=== PATIENT | male | born 1960 | race Two or more races ===

== ENCOUNTER → 2021-12-30 | Outpatient (CLI) | payer MEDICARE ==
[2021-12-30 12:09] LABS: Potassium 4.8 mmol/L (3.5-5.1)
[2021-12-30 12:19] LABS: BUN/Creatinine Ratio 14.8; Calcium 7.6 mg/dL (8.5-10.1)
== END | disposition home or self-care (01) ==
LOC: LAB 09:30
PROVIDERS: ATTEND Internal Medicine Nephrology
DX: N18.4 Chronic kidney disease, stage 4 (severe) (principal)
CPT/HCPCS: 36415; 80048

== ENCOUNTER → 2023-10-24 | Outpatient (CLI) | payer MEDICARE, MEDICAID ==
[2023-10-24 10:12] LABS: Basophils # (auto) 0 10 ^3/uL (0-0.2); Basophils % (auto) 0.5 % (0.0-2.0); Eosinophils # (auto) 0 10 ^3/uL (0-0.8); Eosinophils % (auto) 0.5 % (0.0-7.0); Hematocrit 29.9 % (41.0-53.0); Hemoglobin 9.6 g/dL (13.5-17.5); Lymphocytes # (auto) 0.7 10 ^3/uL (0.4-5.4); Lymphocytes % (auto) 7.8 % (10.0-50.0); Mean Corpuscular Hemoglobin 29.9 pg (28.0-32.0); Mean Corpuscular Hgb Conc. 32.1 g/dL (32.0-36.0); Mean Corpuscular Volume 93.2 fL (80.0-100.0); Monocytes # (auto) 0.9 10 ^3/uL (0-1.3); Monocytes % (auto) 10.1 % (0.0-12.0); Neutrophils # (auto) 7.6 10 ^3/uL (1.6-8.6); Neutrophils % (auto) 81.1 % (37.0-80.0); Red Blood Cells 3.21 10^6/uL (4.5-5.90); Red Cell Distribution Width 14.7 % (11.8-14.3); White Blood Cell 9.3 10^3/uL (4.4-10.8)
[2023-10-24 11:25] LABS: Alanine Aminotransferase 17 U/L (7-40); Albumin 3.4 g/dL (3.2-4.8); Alkaline Phosphatase 183 U/L (46-116); Anion Gap 10 (5-15); Aspartate Aminotransferase 15 U/L (13-40); BUN/Creatinine Ratio 7.7 (10.0-20.0); Blood Urea Nitrogen 37 mg/dL (9-23); Calcium 7.8 mg/dL (8.5-10.1); Carbon Dioxide 25 mmol/L (20-30); Chloride 98 mmol/L (98-107); Glucose 155 mg/dL (74-106); Potassium 4.9 mmol/L (3.5-5.1); Sodium 133 mmol/L (136-145); Total Protein 7.3 g/dL (5.7-8.2)
== END | disposition home or self-care (01) ==
LOC: LAB 09:51
PROVIDERS: ATTEND Student in an Organized Health Care Education/Training Program
DX: I12.0 Hypertensive chronic kidney disease with stage 5 chronic kidney disease or end stage renal disease (principal); E11.22 Type 2 diabetes mellitus with diabetic chronic kidney disease; N18.6 End stage renal disease
CPT/HCPCS: 36415; 80053; 83036; 85025

== ENCOUNTER → 2024-04-04 | Outpatient (CLI) | payer MEDICARE, MEDICAID | END | disposition home or self-care (01) | LOC: LAB 10:23 | PROVIDERS: ATTEND Podiatrist | DX: E11.621 Type 2 diabetes mellitus with foot ulcer (principal) | CPT/HCPCS: 87075; 87077; 87186; 87205 ==

== ENCOUNTER 2024-08-14 03:40 | Inpatient (IN) | payer MEDICARE, MEDICAID ==
[~2024-08-14] VITALS: Ht 167.6 cm; Wt 68.6 kg
[2024-08-14] MEDS: ONDANSETRON ODT 4 MG TAB PO ONE (05:49)
[2024-08-14 06:08] LABS: Basophils # (auto) 0 10 ^3/uL (0-0.2); Basophils % (auto) 0.1 % (0.0-2.0); Eosinophils # (auto) 0.1 10 ^3/uL (0-0.8); Hematocrit 34.2 % (41.0-53.0); Hemoglobin 11.7 g/dL (13.5-17.5); Lymphocytes # (auto) 0.6 10 ^3/uL (0.4-5.4); Lymphocytes % (auto) 7.3 % (10.0-50.0); Mean Corpuscular Hemoglobin 31.8 pg (28.0-32.0); Mean Corpuscular Hgb Conc. 34.3 g/dL (32.0-36.0); Mean Corpuscular Volume 92.9 fL (80.0-100.0); Monocytes # (auto) 0.8 10 ^3/uL (0-1.3); Monocytes % (auto) 8.7 % (0.0-12.0); Neutrophils # (auto) 7.2 10 ^3/uL (1.6-8.6); Neutrophils % (auto) 82.9 % (37.0-80.0); Platelet Count (auto) 71 10^3/uL (140-450); Red Blood Cells 3.68 10^6/uL (4.5-5.90); Red Cell Distribution Width 14.7 % (11.8-14.3); White Blood Cell 8.7 10^3/uL (4.4-10.8)
[2024-08-14 06:09] LABS: INR 1.1 (0.9-1.15); Partial Thromboplastin Time 33.2 SEC (24.5-34.5); Prothrombin Time 11.6 sec (9.3-11.8)
[2024-08-14 06:13] LABS: Alkaline Phosphatase 101 U/L (46-116); Anion Gap 17 (5-15); Aspartate Aminotransferase < 8 U/L (13-40); BUN/Creatinine Ratio 5.4 (10.0-20.0); Bilirubin, Total 0.6 mg/dL (0.2-1.0); Blood Urea Nitrogen 60 mg/dL (9-23); Calcium 7.3 mg/dL (8.7-10.4); Carbon Dioxide 17 mmol/L (20-31); Chloride 94 mmol/L (98-107); Glucose 121 mg/dL (74-106); Potassium 3.2 mmol/L (3.5-5.1); Sodium 128 mmol/L (136-145)
[2024-08-14 06:14] LABS: Total Protein 7.9 g/dL (5.7-8.2)
[2024-08-14 06:27] LABS: Alanine Aminotransferase < 9 U/L (7-40)
[2024-08-14] MEDS: SODIUM CHLORIDE 0.9% 250 ML IV ONE (07:12)
[2024-08-14] MEDS: SODIUM CHLORIDE 0.9% 1,000 ML IV ONE (07:58)
[2024-08-14 08:25] LABS: Large Platelets FEW; Platelet Estimate Decrea
[2024-08-14] MEDS ORDERED: NITROGLYCERIN 0.4 MG SL TAB SL PRN (10:30)
[2024-08-14] MEDS ORDERED: DOCUSATE SOD 100 MG CAP PO PRN (10:30)
[2024-08-14] MEDS: SODIUM CHLORIDE 0.9% 1,000 ML IV SCH (12:12)
[2024-08-14] MEDS: PIPERACILLIN-TAZOB 2.25GM 50 ML IV ONE (12:13)
[2024-08-14 12:15] LABS: INR 1.08 (0.9-1.15); Prothrombin Time 11.4 sec (9.3-11.8)
[2024-08-14] MEDS ORDERED: ENOXAPARIN SOD 100 MG/1 ML SYRINGE SC ONE (12:15)
[2024-08-14] MEDS: CALCIUM CARB 500 MG CHEW TAB PO ONE (13:00)
[2024-08-14] MEDS: PANTOPRAZOLE 40 MG/10 ML VIAL INJ IV ONE (13:03)
[2024-08-14] MEDS: MORPHINE SULFATE INJ 2 MG/ml SYRG IV PRN (13:25)
[2024-08-14 16:04] VITALS: BP 153/60; PULSE 62; RESP 18; TEMP 97.5; O2SAT 98
[2024-08-14 16:06] VITALS: RESP 18
[2024-08-14 16:20] VITALS: BP 155/62; PULSE 65; RESP 15; TEMP 97.4; O2SAT 98
[2024-08-14] MEDS: ONDANSETRON HCL 4 MG/2 ML VIAL IV PRN (16:53)
[2024-08-14 17:52] VITALS: BP 155/62; PULSE 65; RESP 15; TEMP 97.4; O2SAT 98
[2024-08-14] MEDS: CALCIUM CARB 500 MG CHEW TAB PO SCH (18:49)
[2024-08-14 20:00] VITALS: PULSE 69; PULSE 70; RESP 18; O2SAT 97
[2024-08-14 21:00] VITALS: BP 156/66; PULSE 70; RESP 18; TEMP 98; O2SAT 97
[2024-08-14] MEDS: PIPERACILLIN-TAZOB 2.25GM 50 ML IV SCH (21:09)
[2024-08-15] VITALS (7 sets, daily range): BP systolic 135–162; BP diastolic 61–65; PULSE 60–82; RESP 13–18; TEMP 97.5–98.2; O2SAT 92–99
[2024-08-15] MEDS ORDERED: LISI2.5T47 PO (01:49)
[2024-08-15] MEDS ORDERED: AMLO1TAB22 PO (01:49)
[2024-08-15] MEDS ORDERED: CARV3.1240 PO (01:49)
[2024-08-15 02:01] LABS: Body Fluid Red Blood Cells 628 CUMM (0-2000); Body Fluid White Blood Cells 233 CUMM (0-200)
[2024-08-15 02:10] LABS: Body Fluid Polymorphonuclear 29 % (0-25)
[2024-08-15] MEDS ORDERED: HYDROcodone-ACET 7.5/325MG TAB PO ONE (03:45)
[2024-08-15] MEDS ORDERED: SODIUM CHL 0.9% 1000 ML BAG XX ONE (07:00)
[2024-08-15 07:07] LABS: Hematocrit 31.4 % (41.0-53.0); Hemoglobin 10.6 g/dL (13.5-17.5)
[2024-08-15 07:11] LABS: Albumin 3.5 g/dL (3.2-4.8); Alkaline Phosphatase 124 U/L (46-116); Anion Gap 17 (5-15); Aspartate Aminotransferase < 8 U/L (13-40); BUN/Creatinine Ratio 6.2 (10.0-20.0); Calcium 6.8 mg/dL (8.7-10.4); Carbon Dioxide 18 mmol/L (20-31); Chloride 95 mmol/L (98-107); Glucose 122 mg/dL (74-106); Lipase 79 U/L (12-53); Potassium 3.2 mmol/L (3.5-5.1); Sodium 130 mmol/L (136-145)
[2024-08-15 07:12] LABS: Bilirubin, Total 0.5 mg/dL (0.2-1.0)
[2024-08-15 07:13] LABS: Alanine Aminotransferase < 9 U/L (7-40); Blood Urea Nitrogen 72 mg/dL (9-23)
[2024-08-15 07:14] LABS: % Iron Saturation 20.7 % (20-55)
[2024-08-15 07:20] LABS: Basophils # (auto) 0 10 ^3/uL (0-0.2); Basophils % (auto) 0.3 % (0.0-2.0); Eosinophils # (auto) 0.1 10 ^3/uL (0-0.8); Hematocrit 30.3 % (41.0-53.0); Hemoglobin 10.5 g/dL (13.5-17.5); Lymphocytes # (auto) 0.6 10 ^3/uL (0.4-5.4); Lymphocytes % (auto) 9.3 % (10.0-50.0); Mean Corpuscular Hemoglobin 32.2 pg (28.0-32.0); Mean Corpuscular Hgb Conc. 34.7 g/dL (32.0-36.0); Mean Corpuscular Volume 92.8 fL (80.0-100.0); Monocytes # (auto) 0.6 10 ^3/uL (0-1.3); Monocytes % (auto) 9.3 % (0.0-12.0); Neutrophils # (auto) 5.3 10 ^3/uL (1.6-8.6); Neutrophils % (auto) 80.1 % (37.0-80.0); Platelet Count (auto) 82 10^3/uL (140-450); Red Blood Cells 3.27 10^6/uL (4.5-5.90); Red Cell Distribution Width 14.7 % (11.8-14.3); White Blood Cell 6.6 10^3/uL (4.4-10.8)
[2024-08-15] MEDS: PANTOPRAZOLE 40 MG/10 ML VIAL INJ IV SCH (08:59)
[2024-08-15 09:02] LABS: Hepatitis B Surface Antigen Negative (Negative)
[2024-08-15 09:22] LABS: Hepatitis A Ab IgM Negative
[2024-08-15 09:23] LABS: Hepatitis B Core IgM Negative
[2024-08-15 09:24] LABS: Hepatitis C Antibody Negative (Negative)
[2024-08-15] MEDS ORDERED: ENOXAPARIN SOD 100 MG/1 ML SYRINGE SC SCH (10:00)
[2024-08-15] MEDS ORDERED: HYDROmorphone HCL 2 MG TAB PO PRN (13:15)
[2024-08-15] MEDS: HYDROmorphone HCL 2 MG TAB PO SCH (13:59)
[2024-08-15] MEDS ORDERED: ALBUMIN 25% 100 ML IV SCH (16:00)
[2024-08-16] VITALS (8 sets, daily range): BP systolic 132–158; BP diastolic 56–95; PULSE 61–82; RESP 12–20; TEMP 97.6–98.4; O2SAT 96–100
[2024-08-16 13:07] LABS: Protein, Body Fluid 5.8 g/dL (.)
[2024-08-16] MEDS: HYDROcodone-ACET 5/325MG TAB PO PRN (21:42)
[2024-08-17 08:00] VITALS: PULSE 64; RESP 16; O2SAT 97
[2024-08-17 09:00] VITALS: BP 151/66; PULSE 64; RESP 16; TEMP 98.1; O2SAT 97
[2024-08-17 12:47] VITALS: BP 149/59; PULSE 63; RESP 14; TEMP 98.4; O2SAT 97
[2024-08-17 17:00] VITALS: BP 96/76; PULSE 81; RESP 14; TEMP 97.5; O2SAT 96
[2024-08-17 20:00] VITALS: PULSE 65; RESP 17
[2024-08-17 21:00] VITALS: BP 154/70; PULSE 61; RESP 18; TEMP 98.5; O2SAT 99
[2024-08-18 01:00] VITALS: BP 158/64; PULSE 61; RESP 18; TEMP 98.6; O2SAT 97
[2024-08-18 08:00] VITALS: PULSE 64; RESP 16
[2024-08-18 09:00] VITALS: BP 151/71; PULSE 65; RESP 17; TEMP 98.3; O2SAT 93
[2024-08-18] MEDS: LIDOCAINE 2% (LOCAL ANESTH.) PF 5ml SDV ONE (09:43)
[2024-08-18] MEDS ORDERED: LIDOCAINE 1% HCL (LOCAL ANESTH.) INJ 20ML MDV ID ONE (10:00)
[2024-08-18] MEDS ORDERED: LIDOCAINE 2% (LOCAL ANESTH.) PF 5ml SDV IJ ONE (10:15)
[2024-08-18] MEDS: MULTIPLE VITAMINS W/ MINERALS TAB PO SCH (10:36)
[2024-08-18] MEDS ORDERED: HYDR-4902 PO (11:13)
[2024-08-18 13:00] VITALS: BP 151/67; PULSE 63; RESP 15; TEMP 98.1; O2SAT 96
== END 2024-08-18 18:00 | disposition home health service (06) | DRG 423 ==
LOC: ER 03:40 → TELE 10:45 → TELE-WESTW 10:45
PROVIDERS: ADMIT Family Medicine; ATTEND Family Medicine
PROC: 0W9G3ZZ Drainage of Peritoneal Cavity, Percutaneous Approach (ICD-10-PCS; 2024-08-14)
PROC: 0JBR0ZZ Excision of Left Foot Subcutaneous Tissue and Fascia, Open Approach (ICD-10-PCS; principal; 2024-08-15)
PROC: 5A1D70Z Performance of Urinary Filtration, Intermittent, Less than 6 Hours Per Day (ICD-10-PCS; 2024-08-15)
PROC: 05H933Z Insertion of Infusion Device into Right Brachial Vein, Percutaneous Approach (ICD-10-PCS; 2024-08-18)
PROC: B54MZZA Ultrasonography of Right Upper Extremity Veins, Guidance (ICD-10-PCS; 2024-08-18)
DX: K74.60 Unspecified cirrhosis of liver (principal); K85.90 Acute pancreatitis without necrosis or infection, unspecified; N18.6 End stage renal disease; R18.8 Other ascites; E87.1 Hypo-osmolality and hyponatremia; I12.0 Hypertensive chronic kidney disease with stage 5 chronic kidney disease or end stage renal disease; N17.9 Acute kidney failure, unspecified; R16.1 Splenomegaly, not elsewhere classified; E87.6 Hypokalemia; F17.210 Nicotine dependence, cigarettes, uncomplicated; E11.51 Type 2 diabetes mellitus with diabetic peripheral angiopathy without gangrene; E11.622 Type 2 diabetes mellitus with other skin ulcer; L98.499 Non-pressure chronic ulcer of skin of other sites with unspecified severity; E78.00 Pure hypercholesterolemia, unspecified; E11.22 Type 2 diabetes mellitus with diabetic chronic kidney disease; D73.89 Other diseases of spleen; Z99.2 Dependence on renal dialysis; Z83.3 Family history of diabetes mellitus; Z82.49 Family history of ischemic heart disease and other diseases of the circulatory system; Z89.421 Acquired absence of other right toe(s); Z89.432 Acquired absence of left foot
CPT/HCPCS: 11042; 36415; 49083; 73562; 74176; 76705; 76942; 80053; 80074; 82728; 83540; 83550; 83615; 83690; 83986; 85014; 85018; 85025; 85610; 85730; 87205; 89051; 90935; 93971; 96361; 96365; 96375; G0378; J2003; J2405; J2470; J2543; Q0162